=== PATIENT | male | born 1945 | race Hispanic/Latino ===

== ENCOUNTER 2018-02-18 08:33 | Day surgery (SDC) | payer MEDICARE, BC ==
[2018-02-15 13:52] VITALS: BMI 31.1
[2018-02-18] MEDS ORDERED: Midazolam 2 MG/2 ML VIAL ONE (09:56)
[2018-02-18] MEDS ORDERED: Propofol 10 mg/ml Inj (20 ML) ONE (09:57)
[2018-02-18] MEDS ORDERED: Ciprofloxacin 400mg/200ml D5W 400 MG/200 ML BAG IVPB ONE (10:24)
[2018-02-18] MEDS ORDERED: Iohexol 240 (50 ml) ONE (10:25)
[2018-02-18] MEDS ORDERED: Lactated Ringer's 1,000 ML IV ONE (10:30)
[2018-02-18] MEDS ORDERED: HYDROmorphone 0.5 mg/0.5 ml ISec IVP PRN (11:06)
[2018-02-18] MEDS ORDERED: Gentamicin 80 mg in 0.9% NS 80 MG/100 ML BAG IVPB ONE (11:17)
--- NOTE | 2018-02-18 11:17 | PCM.SURG1 ---
Surgeon's Initial Post Op Note - Surgeon's Notes Surgeon: Eugene Brunson Rust Proofer: none Type of Anesthesia: IV Sedation Pre-Operative Diagnosis: urolithiasis Operative Findings: same. bph. prostatitis Post-Operative Diagnosis: same Operation Performed: cysto, removal of R ureteral stent Specimen/Specimens Removed: urine, stent Estimated Blood Loss: EBL {In ML}: 0 Blood Products Given: N/A Drains Used: No Drains Post-Op Condition: Good Date of Surgery/Procedure: 02/18/18 Time of Surgery/Procedure: 11:05
[2018-02-18 12:28] VITALS: BP 103/90; PULSE 88; RESP 18; TEMP 97; O2SAT 100
--- NOTE | 2018-02-19 21:20 | OP ---
PROCEDURE DATE: PREOPERATIVE DIAGNOSIS History of urolithiasis. POSTOPERATIVE DIAGNOSES: History of urolithiasis, BPH, cystitis. PROCEDURE: Cystoscopy. Removal of right ureteral stent. Exam under anesthesia. OPERATING SURGEON: Gayla Brunson MD The patient was placed in lithotomy position. The patient had received perioperative antibiotics. The patient had abdominal x-ray including PA and oblique views. X-rays were reviewed. The right ureteral stent was in proper position. There were no definite stones identified over the course of the kidney, ureter, or bladder. The genitalia was prepped and draped sterilely with the patient in lithotomy position. A 22-[place] cystoscope sheath was introduced under direct vision. Procedure was performed under video endoscopic control. The urethra, prostate, and bladder were inspected. FINDINGS: There was no stricture in the area of the anterior urethra. There was evidence of lateral prostatic hypertrophy. There were submucosal concretions within the prostate. Prostatic urethra was occlusive secondary to lateral lobe hypertrophy as well as a small middle lobe. The prostatic urethra was 3.5 cm in length. There was no bladder tumor. There was no bladder stone. There was mild bladder trabeculation. The right ureteral stent was identified. There was moderate cystitis. There was moderate inflammation around the right ureteral orifice around the stent. The right ureteral stent was identified and grasped with rigid grasping forceps and removed intact. The bladder was reinspected and confirmed the above findings. The bladder was drained. Cystoscope sheath removed. Rectal examination was performed. Prostate was supple and smooth without fixation, induration, or nodularity. There was no pelvic mass or fixation. The patient tolerated the procedure without complication. Gayla Brunson MD
== END 2018-02-18 12:52 | disposition home or self-care (01) ==
LOC: C.SDS 08:33
PROVIDERS: ATTEND Urology
DX: Z87.442 Personal history of urinary calculi (principal); N30.90 Cystitis, unspecified without hematuria; N40.0 Benign prostatic hyperplasia without lower urinary tract symptoms
CPT/HCPCS: 52310; 74019; 87086; J0744; J1580; J7120